=== PATIENT | female | born 2000 | race Caucasian/White ===

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

== ENCOUNTER 2020-12-12 13:49 | Emergency (ER) | payer OTHER, SELFPAY ==
[2020-12-03 07:42] VITALS: BMI 19.2
[2020-12-12 13:50] VITALS: BP 113/68; PULSE 82; RESP 16; TEMP 36.4; O2SAT 97; BMI 21.4
--- NOTE | 2020-12-12 14:05 | CT_ITS ---
STUDY: CT ABDOMEN AND PELVIS WITHOUT CONTRAST REASON FOR EXAM: Female, 20 years old. Abdominal pain. RADIATION DOSAGE (If Supplied By Facility): CTDIvol = ( 7.01 ) mGy, DLP = ( 315.28 ) mGycm TECHNIQUE: Transaxial images were obtained from the dome of the diaphragm to the symphysis pubis with oral contrast, and without intravenous contrast. Sagittal and coronal images were reconstructed. Individualized dose optimization techniques were used for this CT. COMPARISON: None. FINDINGS: The visualized lung bases are unremarkable. The visualized portions of the heart are within normal limits. Normal liver. Normal gallbladder and extrahepatic biliary system. Normal spleen. Normal pancreas. Normal bilateral adrenal glands. There is a 2 mm nonobstructing calculus lower pole calyx of an otherwise normal right kidney. Normal left kidney. Ureters are not visualized. Normal visualized stomach. Normal small intestine. Contrast is seen in the distal small bowel and colon. There is no mass or obstruction. The appendix is visualized and appears normal. Normal abdominal aorta. Normal inferior vena cava. Normal retroperitoneum. Normal urinary bladder. Normal uterus and ovaries. There is no pelvic lymphadenopathy. No free air or free fluid is seen within the peritoneal cavity. Normal abdominal wall. Normal osseous structures. CT/Abdomen/Pel W ORAL Cont Only IMPRESSION: 1. Mild limitation in evaluation due to lack of IV contrast and paucity of internal body fat. 2. Nonobstructing right renal calculus. 3. No evidence of acute intra-abdominal or pelvic process. Electronically Signed: Adilson Smith DO at 16:43 EDT Tel [phone], Service support ,
--- NOTE | 2020-12-12 14:06 | ED.VIS.GI ---
HPI HPI - GI History of Present Illness Chief Complaint: Abd Pain Detail of Chief Complaint: Abdominal pain that started this morning Informant: patient Abdominal Pain/Flank Pain Onset: Today Worsened by: Movement Nausea/Vomiting/Emesis GI Symptom: Positive for Nausea and Vomiting Quality: Positive for Hematemesis Narrative Narrative: Patient presents to the emergency department complaint of abdominal pain that started this morning. The pain came on rather suddenly. She describes it as upper abdomen and note starting to radiate to her back. She has vomited 3 times with it and the third time she had small amount of mucousy blood. She denies any fever. Patient denies any diarrhea. Patient has had normal bowel movements. She states that she has pain in the upper abdomen when she urinates. Patient currently being treated with amoxicillin for ear infection and is on day 9. She also is on Monistat for yeast infection related to the antibiotic. Patient has never had pain like this before. Last menstrual period was a week ago normal. PFSH PFSH Medical History Non-smoker Home Medications amoxicillin 875 mg-potassium clavulanate 125 mg tablet 1 tab PO Q12H 10 Days #20 tab 12/03/20 [Rx Last Taken Unknown] buspirone 5 mg PO BID 12/12/20 [History Last Taken Unknown] hydrocodone-acetaminophen 1 tab PO Q4H PRN PRN 2 Days #10 tablet 12/12/20 [Rx Last Taken Unknown] lansoprazole [Prevacid] 30 mg PO DAILY #30 cap 12/12/20 [Rx Last Taken Unknown] ondansetron 4 mg PO Q8H PRN PRN #10 tab 12/12/20 [Rx Last Taken Unknown] oxcarbazepine 600 mg PO DAILY 12/12/20 [History Last Taken Unknown] vortioxetine [Trintellix] 10 mg PO DAILY 12/12/20 [History Last Taken Unknown] Allergy/AdvReac Type Severity Reaction Status Date / Time No Known Allergies Allergy Verified 12/12/20 13:52 Social History Smoking Status: Never smoker ROS ROS ED Constitutional Constitutional ED: Reports systems reviewed and no addt'l complaints, except as documented; Denies body ache(s), change in weight or chills Eyes Eyes: Denies acute decrease in peripheral vision, change in vision, double vision or loss of vision ENT ENT ED: Reports none; Denies ear pain, lip swelling, loss taste/smell, neck pain, otalgia or sore throat Cardiovascular Cardiovascular: Reports none; Denies abdominal pain, chest pain with activity, leg edema, lightheadedness, palpitations, rapid heart rate or syncope Respiratory/Chest Respiratory/Chest: Reports none; Denies change in mental status, dry cough, dyspnea, hemoptysis, shortness of breath at rest or shortness of breath with exertion Gastrointestinal Gastrointestinal: Reports none, abdominal pain, nausea and vomiting; Denies change in stool character, diarrhea, hematemesis, hematochezia, melena or rectal bleeding Genitourinary Genitourinary ED: Reports none; Denies abdominal discomfort, anuria, dysuria, genital pain or polyuria Musculoskeletal Musculoskeletal: Reports none; Denies arthralgias, back pain, difficulty walking, extremity pain, muscle weakness or myalgias Integumentary Reports none; Denies abscess or rash Neurologic Neurologic: Reports none; Denies abnormal gait, confusion, focal weakness, frequent falls, headache(s), loss of vision, numbness, paresthesias, radicular pain, vertigo or weakness Psychiatric Psychiatric: Reports systems reviewed and no addt'l complaints, except as documented and none; Denies behavioral changes, confusion, difficulty concentrating, hallucinations, suicidal ideation, tactile hallucinations or visual hallucinations Endocrine Endocrinology: Denies none, cold intolerance, excessive sweating, fatigue or heat intolerance Hematologic/Lymphatic Hematologic/Lymphatic: Reports none; Denies anemia, easy bleeding or easy bruising Allergic/Immunologic Allergic/Immunologic ED: Denies as per HPI, none, lip swelling, mouth swelling, throat swelling, tongue swelling or hives EXAM Physical Exam Const Vital Signs: 12/12/20 13:50 12/12/20 16:53 Temperature 97.6 F L Temperature Source Temporal Pulse Rate 82 105 H Respiratory Rate 16 14 Blood Pressure 113/68 Blood Pressure Mean 83 Pulse Ox 97 98 Oxygen Delivery Method Room Air Room Air Positive well nourished and well developed General Appearance ED: well developed and NAD HEENT Reports TM's clear and moist mucous membranes normocephalic and atraumatic; Negative for trauma or tenderness Tympanic Membrane ED: Yes TM's clear Eyes PERRL and EOMs intact bilaterally General Eye ED: Negative for pale conjunctiva or scleral icterus Neck no lymphadenopathy, supple and no JVD General: Negative for tenderness Chest Wall inspection of chest normal and palpation of chest normal Chest: Negative for tenderness Resp normal respiratory effort and clear to auscultation bilaterally Effort and Inspection: Negative for respiratory distress or pain with movement Auscultation: Negative for rhonchi, wheezes or diminished lung sounds Cardio regular rate, regular rhythm, S1 normal heart sound, S2 normal heart sound and no murmurs Peripheral Pulses: pulses 2+ throughout GI normal to inspection, nondistended, normoactive bowel sounds, soft to palpation and no masses Palpation: tender epigastric and LUQ Back/Spine no CVA tenderness and no thoracic nor lumbar tenderness Extremity normal to inspection General Extremety ED: Negative for edema General Extremity: Negative for edema Neuro oriented x3, CN's II-XII intact bilaterally, no sensory deficits noted and gait normal Sensorium / Orientation: awake, alert, oriented to person, oriented to place and oriented to time Motor Exam: strength 5/5 throughout and strength abnormal Psych mental status grossly normal Skin no rashes or lesions noted and no wounds MDM MDM MDM Narrative Medical decision making narrative: Patient not wanting anything for pain in the emergency department. She did receive Zofran and it did help her nausea. Patient will be started on Prevacid. She is advised to follow-up with her primary care physician in 3 to 5 days. She is advised to return if worsening pain, fever, persistent hematemesis, or condition should worsen anyway. Lab Data Attestation: I reviewed the patient's lab results. Labs: Laboratory Results - last 24 hr 12/12/20 12/12/20 12/12/20 14:45 14:45 14:45 WBC 10.0 RBC 4.73 Hgb 14.8 Hct 44.8 MCV 94.7 MCH 31.3 MCHC 33.0 RDW Std Deviation 42.3 RDW Coeff of Geovanna 12.0 Plt Count 211 MPV 9.6 Immature Gran % (Auto) 0.200 Neut % (Auto) 78.2 H Lymph % (Auto) 9.6 L Andrew % (Auto) 10.2 H Eos % (Auto) 1.6 Baso % (Auto) 0.2 Absolute Neuts (auto) 7.8 H Absolute Lymphs (auto) 0.96 Nucleated RBC % 0 Sodium 139 Potassium 3.2 L Chloride 105 Carbon Dioxide 29.0 Anion Gap 5 BUN 14 Creatinine 0.80 Estim Creat Clear Calc 100.94 Est GFR (MDRD) Af Amer 116 Est GFR (MDRD) Non-Af 96 BUN/Creatinine Ratio 17.4 Glucose 94 Calcium 9.0 Total Bilirubin 0.40 AST 20 ALT 25 Alkaline Phosphatase 87 Total Protein 7.2 Albumin 4.0 Globulin 3.2 Albumin/Globulin Ratio 1.2 Lipase 77 Serum , Qual NEGATIVE Urine Color Urine Clarity Urine pH Ur Specific [place] Urine Protein Urine Glucose (UA) Urine Ketones Urine Occult Blood Urine Nitrite Urine Bilirubin Urine Urobilinogen Ur Leukocyte Esterase Urine RBC Urine WBC Ur Squamous Epith Cells Urine Bacteria Urine Mucus 12/12/20 14:56 WBC RBC Hgb Hct MCV MCH MCHC RDW Std Deviation RDW Coeff of Geovanna Plt Count MPV Immature Gran % (Auto) Neut % (Auto) Lymph % (Auto) Andrew % (Auto) Eos % (Auto) Baso % (Auto) Absolute Neuts (auto) Absolute Lymphs (auto) Nucleated RBC % Sodium Potassium Chloride Carbon Dioxide Anion Gap BUN Creatinine Estim Creat Clear Calc Est GFR (MDRD) Af Amer Est GFR (MDRD) Non-Af BUN/Creatinine Ratio Glucose Calcium Total Bilirubin AST ALT Alkaline Phosphatase Total Protein Albumin Globulin Albumin/Globulin Ratio Lipase Serum , Qual Urine Color Yellow Urine Clarity Sl. Cloudy Urine pH 6.5 Ur Specific [place] 1.015 Urine Protein Negative Urine Glucose (UA) Normal Urine Ketones Negative Urine Occult Blood Negative Urine Nitrite Negative Urine Bilirubin Negative Urine Urobilinogen 1 H Ur Leukocyte Esterase 100 H Urine RBC 0 SEEN Urine WBC 0 SEEN Ur Squamous Epith Cells 10-25 SEEN Urine Bacteria 0 SEEN Urine Mucus 0 SEEN Radiography Diagnostic Testing: Radiology Impression Abdomen CT 12/12/20 14:05 IMPRESSION: 1. Mild limitation in evaluation due to lack of IV contrast and paucity of internal body fat. 2. Nonobstructing right renal calculus. 3. No evidence of acute intra-abdominal or pelvic process. Electronically Signed: Adilson Smith DO at 16:43 EDT Tel [phone], Service support , Discharge Plan Triage Chief Complaint: Abd Pain ED Provider: Susan Daly Dx/Rx/DC Orders Clinical Impression: Abdominal pain, Nicki-Bahena tear Instructions: Nicki-Bahena Tear, ED Abdominal Pain Unkn Cause Fem Prescriptions: New ondansetron [ondansetron] 4 MG tablet 4 mg PO Q8H PRN PRN (Reason: Nausea) Qty: 10 RF: 0 lansoprazole [Prevacid] 30 mg capsule,delayed release(DR/EC) 30 mg PO DAILY Qty: 30 RF: 0 hydrocodone-acetaminophen 5-325 mg tablet 1 tab PO Q4H PRN PRN (Reason: Pain) 2 Days Qty: 10 RF: 0 No Action amoxicillin-pot clavulanate [Augmentin] 875-125 mg tablet 1 tab PO Q12H 10 Days Qty: 20 RF: 0 buspirone 5 mg tablet 5 mg PO BID RF: 0 oxcarbazepine 300 mg tablet 600 mg PO DAILY RF: 0 Trintellix 10 mg tablet 10 mg PO DAILY RF: 0 Primary Care Provider: Sophie Beach Referrals: Sophie Beach MD [Primary Care Provider] - 3-5 Days Disposition Disposition: Home, self care
[2020-12-12] MEDS: 0.9% Normal Saline 1,000 ML 125 ML IV (14:49)
[2020-12-12] MEDS: Ondansetron 4 MG/2 ML Vial IV (14:50)
[2020-12-12 14:53] LABS: Absolute Lymphocyte Count 0.96 X10^3/uL (0.83-4.51); Absolute Neutrophil Count 7.8 X10^3/uL (2.0-7.7); Basophil# 0.02 X10^3/uL; Basophil% 0.2 % (0-1); Eosinophil# 0.16 X10^3/uL; Eosinophils% 1.6 % (0-5); Hematocrit 44.8 % (37-47); Hemoglobin 14.8 g/dL (12.0-15.0); Lymphocyte # 0.96 X10^3/ul (0.83-4.51); Lymphocyte % 9.6 % (19-41); Mean Corpuscular Hgb 31.3 pg (27.0-32.0); Mean Corpuscular Volume 94.7 fL (81-99); Mean Platelet Vol. 9.6 fl (6.2-12.0); Monocyte# 1.02 X10^3/uL; Monocyte% 10.2 % (0-10); NRBC Flagged by Analyzer 0 % (0-5); Neutrophil # 7.79 X10^3/uL (2.7-7.7); Neutrophil % 78.2 % (47-70); Platelet Count 211 K/mm3 (150-450); RBC Distribution Width SD 42.3 fl (35.1-43.9); Red Blood Count 4.73 M/mm3 (4.2-5.4)
[2020-12-12 15:00] LABS: Bacteria 0 SEEN /hpf (None Seen); Mucous, Urine 0 SEEN /hpf (<or=2+); Red Blood Cells-Urine 0 SEEN /hpf (0-5); White Blood Cells 0 SEEN /hpf (0-5)
[2020-12-12 15:01] LABS: Color, Urine Yellow (Yellow); Glucose, Dipstick Normal (Normal); Ketone-Dipstick Negative (Negative); Leukocyte Esterase-Dipstick 100 /ul (Negative); Nitrite-Dipstick Negative (Negative); Occult Blood-Urine Negative /ul (Negative); Protein-Dipstick Negative (Negative); Specific Gravity, Urine 1.015 (1.002-1.030); Urine Bilirubin Dipstick Negative (Negative); Urine Clarity Sl. Cloudy (Clear); Urine Urobilinogen 1 mg/dl (Normal); Urine pH 6.5 (5.0 - 8.0)
[2020-12-12 15:05] LABS: ALB/GLOB Ratio 1.2 RATIO (0.9-2.4); AST(SGOT) 20 U/L (15-37); Alanine Aminotransfer ALT/SGPT 25 U/L (13-56); Alkaline Phosphatase 87 U/L (45-117); Anion Gap 5 (5-15); BUN 14 mg/dL (7-18); BUN/Creat Ratio 17.4 RATIO (10-20); Chloride 105 mmol/L (98-107); EST Glomerular Filtration Rate 96 mL/min (>60); Est Glom Filt Rate - Afr Amer 116 mL/min (>60); Estimated Creatinine Clearance 100.94 ml/min; Globulin 3.2 g/dL (2.2-4.2); Glucose 94 mg/dL (74-106); Lipase 77 U/L (73-393); Potassium 3.2 mmol/L (3.5-5.1); Protein, Total 7.2 g/dL (6.4-8.2); Sodium Level 139 mmol/L (136-145)
[2020-12-12 15:08] LABS: Squamous Epithelial Cells - UA 10-25 SEEN /hpf (5-10)
[2020-12-12 15:11] LABS: Internal QC Validated? YES +Cl - CLEAR BKGD; Pregnancy, Serum, hCG Quali. NEGATIVE Negative
[2020-12-12 16:53] VITALS: PULSE 105; RESP 14; O2SAT 98
[2020-12-12] MEDS: Mag Hydrox/Al Hydrox/Simeth 30 ML UDC PO (17:10)
== END 2020-12-12 17:15 | disposition home or self-care (01) ==
PROVIDERS: Emergency Provider Emergency Medicine; PCP Pediatrics
DX: K22.6 Gastro-esophageal laceration-hemorrhage syndrome (principal)
CPT/HCPCS: 74176; 80053; 81001; 83690; 84703; 85025; 96361; 96374; 99284; J7030; A4216; J2405

== ENCOUNTER 2022-05-18 14:34 | Emergency (ER) | payer OTHER, SELFPAY ==
[2022-05-18 14:36] VITALS: BP 99/87; PULSE 100; RESP 14; TEMP 36.2; O2SAT 98; BMI 28.3
[2022-05-18] MEDS: Ketorolac 30 MG/ML Syringe IM (15:23)
--- NOTE | 2022-05-18 15:39 | EDS_ITS ---
HPI History of Present Illness Chief Complaint: Abd Pain Narrative Narrative: Patient presents with 1 hour of abdominal pain in the pelvic region. No nausea or vomiting she was sitting on the toilet having a bowel movement when this happened. She is not constipated. She has no urinary symptoms. She denies . No fevers or chills. PFSH PFS Medical History Non-smoker Home Medications buspirone 5 mg tablet 5 mg PO BID 12/12/20 [History Last Taken Unknown] oxcarbazepine 300 mg tablet 600 mg PO DAILY 12/12/20 [History Last Taken Unknown] vortioxetine 10 mg tablet (Trintellix) 20 mg PO DAILY 12/12/20 [History Last Taken Unknown] naproxen 500 mg tablet (Naprosyn) 500 mg PO BID #20 tabs 05/18/22 [Rx Last Taken Unknown] Allergy/AdvReac Type Severity Reaction Status Date / Time No Known Allergies Allergy Verified 05/18/22 14:36 Social History Smoking Status: Never smoker ROS ROS ED ROS Narrative Past medical history: Reviewed Medications: Reviewed Social history: Noncontributory Review of systems: All systems negative except as indicated General: No fever Eyes: No visual changes ENT: No upper airway congestion, normal voice Neck: No neck pain Cardiovascular: No chest pain Respiratory: No shortness of breath or cough Gastrointestinal: Suprapubic pain as in HPI. Genitourinary: No dysuria or any other urinary symptoms no vaginal bleeding Musculoskeletal: Denies myalgias no difficulty with ambulation Skin: No rash Neurological: No memory loss, confusion or any focal weakness Psych: No recent behavioral changes Hematologic: No easy bleeding or easy bruising EXAM Physical Exam Narrative Exam Narrative: Physical exam General: Well nourished, Well developed, she appears relatively comfortable in the bed. Head: Normocephalic, Atraumatic Eyes: Conjunctiva not pale ENT: Moist mucous membranes Neck: Supple, Nontender, No lymphadenopathy Cardiovascular: Regular rate, Regular rhythm Respiratory: No distress, CTA bilaterally Abdomen: Soft, suprapubic pain and slight there is no guarding or rebound. Back: Nontender, Normal Inspection. Negative for: CVA tenderness Extremities: Nontender, No edema Skin: Normal color, No rash Neurological: Alert, Normal Strength, Normal Sensation Psychological: Normal affect Const Vital Signs: 05/18/22 14:36 Temperature 97.1 F L Temperature Source Temporal Pulse Rate 100 Respiratory Rate 14 Blood Pressure 99/87 H Blood Pressure Mean 91 Pulse Ox 98 Oxygen Delivery Method Room Air [facility] Lab Data Labs: Laboratory Results - last 24 hr 05/18/22 16:04 Urine Color Yellow Urine Clarity Sl. Cloudy Urine pH 7.0 Ur Specific [place] 1.010 Urine Protein Negative Urine Glucose (UA) Normal Urine Ketones Negative Urine Occult Blood Negative Urine Nitrite Negative Urine Bilirubin Negative Urine Urobilinogen Normal Ur Leukocyte Esterase 25 H Urine RBC 0 SEEN Urine WBC 0 SEEN Ur Squamous Epith Cells 0-5 SEEN Urine Bacteria 3+ Urine Mucus 0 SEEN Urine Test Negative Treatment and Re-Evaluation Narrative: Patient's work-up is normal. She had abdominal pain for 1 hour and now it is significantly improved. I do not believe she needs imaging certainly not imaging for appendicitis since it so soon after the onset of pain. I did however tell her that there is a possibility of the pain may migrate to the right lower quadrant, she may have nausea vomiting or fevers and medications to return for repeat evaluation. At this time she has had 1 hour of abdominal pain sharp stabbing which is almost resolved. I think the risks of radiations are too great. I will discharge him in stable condition Discharge Plan Triage Chief Complaint: Abd Pain ED Provider: Adonay Forde Dx/Rx/DC Orders Clinical Impression: Abdominal pain, Pelvic pain Instructions: Abdominal Pain Prescriptions: New naproxen [Naprosyn] 500 mg tablet 500 mg PO BID Qty: 20 0RF No Action buspirone 5 mg tablet 5 mg PO BID oxcarbazepine 300 mg tablet 600 mg PO DAILY Label Comments: TAKE 2 TABLETS BY MOUTH AT BEDTIME Trintellix 10 mg tablet 20 mg PO DAILY Label Comments: TAKE 1 TABLET BY MOUTH ONCE DAILY Primary Care Provider: Care Physician,No Primary Referrals: Radha Birch MD [Med Staff - Active Staff] - 3-5 Days Care Physician,No Primary [Primary Care Provider] - 3-5 Days Disposition Disposition: Home, Self Care
[2022-05-18 16:10] LABS: Mucous, Urine 0 SEEN /hpf (<or=2+); Red Blood Cells-Urine 0 SEEN /hpf (0-5); White Blood Cells 0 SEEN /hpf (0-5)
[2022-05-18 16:14] LABS: Color, Urine Yellow (Yellow); Glucose, Dipstick Normal (Normal); Ketone-Dipstick Negative (Negative); Leukocyte Esterase-Dipstick 25 /ul (Negative); Nitrite-Dipstick Negative (Negative); Occult Blood-Urine Negative /ul (Negative); Protein-Dipstick Negative (Negative); Urine Bilirubin Dipstick Negative (Negative); Urine Clarity Sl. Cloudy (Clear); Urine Urobilinogen Normal (Normal)
[2022-05-18 16:23] LABS: Internal QC Validated? YES +Cl - CLEAR BKGD; Pregnancy, Urine Negative Negative
[2022-05-18 16:33] LABS: Bacteria 3+ /hpf (None Seen); Squamous Epithelial Cells - UA 0-5 SEEN /hpf (5-10)
== END 2022-05-18 17:12 | disposition home or self-care (01) ==
PROVIDERS: Emergency Provider Emergency Medicine; Visit Provider Emergency Medicine
DX: R10.2 Pelvic and perineal pain (principal)
CPT/HCPCS: 81001; 81025; 96372; 99282

== ENCOUNTER 2022-05-29 23:15 | Emergency (ER) | payer OTHER, SELFPAY ==
[2022-05-29 23:15] VITALS: BP 140/55; PULSE 88; RESP 16; TEMP 36.6; O2SAT 98; BMI 26.6
--- NOTE | 2022-05-29 23:24 | EX.ED.DYSGE1 ---
HPI History of Present Illness Chief Complaint: Nausea/Vomiting Narrative Narrative: Presents with nausea for about 7 months, she is on omeprazole which tends to help her symptoms but they continue. She has no fevers chills cough or congestion no back pain or tearing sensation currently she has no abdominal pain. She is denying . PFSH PFS Medical History Non-smoker Home Medications buspirone 5 mg tablet 5 mg PO BID 12/12/20 [History Last Taken Unknown] oxcarbazepine 300 mg tablet 600 mg PO DAILY 12/12/20 [History Last Taken Unknown] vortioxetine 10 mg tablet (Trintellix) 20 mg PO DAILY 12/12/20 [History Last Taken Unknown] naproxen 500 mg tablet (Naprosyn) 500 mg PO BID #20 tabs 05/18/22 [Rx Last Taken Unknown] ondansetron 4 mg disintegrating tablet 4 mg PO Q8H #20 tabs 05/29/22 [Rx Last Taken Unknown] Allergy/AdvReac Type Severity Reaction Status Date / Time No Known Allergies Allergy Verified 05/29/22 23:17 Social History Smoking Status: Never smoker ROS ROS ED ROS Narrative Past medical history: Reviewed Medications: Reviewed Social history: Noncontributory Review of systems: All systems negative except as indicated General: No fever Eyes: No visual changes ENT: No upper airway congestion, normal voice Neck: No neck pain Cardiovascular: No chest pain Respiratory: No shortness of breath or cough Gastrointestinal: No abdominal pain, there is some nausea. No vomiting or diarrhea. Genitourinary: No dysuria Musculoskeletal: Denies myalgias no difficulty with ambulation Skin: No rash Neurological: No memory loss, confusion or any focal weakness Psych: Chronic anxiety no changes EXAM Physical Exam Narrative Exam Narrative: Physical exam General: Well nourished, Well developed, No Acute Distress Head: Normocephalic, Atraumatic ENT: Moist mucous membranes, no signs of dehydration Neck: Supple, Nontender, No lymphadenopathy Cardiovascular: Regular rate, Regular rhythm Respiratory: No distress, CTA bilaterally Abdomen: Soft, Nontender, Nondistended, negative Shaikh's no tenderness anywhere in the abdomen. Back: Nontender, Normal Inspection. Negative for: CVA tenderness Extremities: Nontender, No edema Skin: Normal color, No rash Neurological: Alert, Normal Strength, Normal Sensation Psychological: Quite pleasant. Slightly anxious Const Vital Signs: 05/29/22 23:15 Temperature 97.9 F Temperature Source Temporal Pulse Rate 88 Respiratory Rate 16 Blood Pressure 140/55 H Blood Pressure Mean 83 Pulse Ox 98 Oxygen Delivery Method Room Air MDM MDM MDM Narrative Medical decision making narrative: Patient has chronic nausea, I am unsure about the etiology, I believe this is likely gastritis. She is to continue omeprazole. I will add Zofran. She may need a GI consult, she would benefit from testing at the very least for H. pylori. Discharge Plan Triage Chief Complaint: Nausea/Vomiting ED Provider: Adonay Forde Dx/Rx/DC Orders Clinical Impression: Nausea, Anxiety Instructions: ED Vomiting (Adult) Prescriptions: New ondansetron 4 mg tablet,disintegrating 4 mg PO Q8H Qty: 20 0RF No Action buspirone 5 mg tablet 5 mg PO BID oxcarbazepine 300 mg tablet 600 mg PO DAILY Label Comments: TAKE 2 TABLETS BY MOUTH AT BEDTIME Trintellix 10 mg tablet 20 mg PO DAILY Label Comments: TAKE 1 TABLET BY MOUTH ONCE DAILY naproxen [Naprosyn] 500 mg tablet 500 mg PO BID Qty: 20 0RF Primary Care Provider: Care Physician,No Primary Referrals: Friend,Hitesh, [Med Staff - Active Staff] - 3-5 Days Care Physician,No Primary [Primary Care Provider] - Disposition Disposition: Home, Self Care
[2022-05-29] MEDS: Ondansetron ODT 4 MG Tablet PO (23:29)
== END 2022-05-29 23:40 | disposition home or self-care (01) ==
LOC: ED 23:39
PROVIDERS: Emergency Provider Emergency Medicine; Visit Provider Emergency Medicine
DX: R11.2 Nausea with vomiting, unspecified (principal); F41.9 Anxiety disorder, unspecified; Z79.899 Other long term (current) drug therapy
CPT/HCPCS: 99283

== ENCOUNTER 2022-12-22 22:13 | Emergency (ER) | payer OTHER, SELFPAY ==
[2022-12-22 22:14] VITALS: BP 139/65; PULSE 87; RESP 15; TEMP 36.9; O2SAT 97; BMI 30.1
[2022-12-22 22:38] LABS: Bacteria 0 SEEN /hpf (None Seen); Mucous, Urine 0 SEEN /hpf (<or=2+); Red Blood Cells-Urine 0 SEEN /hpf (0-5); Squamous Epithelial Cells - UA 0 SEEN /hpf (5-10); White Blood Cells 0 SEEN /hpf (0-5)
--- NOTE | 2022-12-22 22:42 | CT_ITS ---
INDICATION: RLQ abd pain EXAMINATION: CT ABDOMEN AND PELVIS WITH CONTRAST - CT Abdomen And Pelvis W/ Contrast Injection TECHNIQUE: Helically acquired images were obtained of the abdomen and pelvis following IV contrast. A radiation dose optimization technique was used for this scan. IV Contrast dosage and agent: 100 mL of Isovue-[id number]. Oral contrast: None. COMPARISON: CT abdomen and pelvis December 12, 2020. FINDINGS: LOWER CHEST: Lung bases are clear. No cardiomegaly or pericardial effusion. Distal esophagus is normal. LIVER: Homogeneous. No focal mass. GALLBLADDER AND BILIARY TREE: No calcified gallstones. Partially collapsed gallbladder limiting assessment. No intra- or extrahepatic biliary ductal dilation. PANCREAS: No focal cystic or solid mass. SPLEEN: Normal size without focal cystic or solid mass. ADRENAL GLANDS: No nodules. KIDNEYS, URETERS and BLADDER: Normal renal size and position. No mass. No hydronephrosis. Bladder is unremarkable. PERITONEUM: Small amount of free fluid along the inferior margin of the cecum. Cecal and shows no inflammatory changes. No other fluid collection. BOWEL: Normal air-filled appendix without wall thickening or other evidence of inflammatory changes. No abnormally distended bowel loops or air fluid levels. No wall thickening or mass. No focal inflammatory changes. LYMPH NODES: No enlarged mesenteric or retroperitoneal lymph nodes. VESSELS: Aorta is non-dilated. Retroaortic left renal vein, variant anatomy. REPRODUCTIVE ORGANS: Uterus has a normal CT appearance. Left ovary is mildly enlarged, 4.3 x 3.1 cm and shows rim enhancing ring type structures likely representing follicles. Right ovary is poorly delineated and appears to be contiguous with some of the pericecal fluid. There is trace free fluid in the dependent right hemipelvis. ABDOMINAL WALL: No discrete abdominal or pelvic wall hernia. BONES: No lytic or blastic abnormality. CT/Abdomen/Pelvis W IV Cont ONLY IMPRESSION: Right adnexal and pericecal fluid around the ill-defined right ovary. No intra-abdominal inflammatory process or other potential origin of this free fluid; right ovary origin is favored. Correlation with ultrasound is recommended. Mildly enlarged left ovary with ring type enhancement within suggesting follicles. Electronically Signed: Olman Romero, DO at 0:06 EDT ,
--- NOTE | 2022-12-22 22:44 | EDS_ITS ---
HPI History of Present Illness Chief Complaint: Complaint Informant: patient and parent Narrative Narrative: Patient is a 22-year-old female with history of chronic nausea and psychiatric disorder presenting with acute right lower quadrant abdominal pain. Patient states she works third shift. She had gotten home and was having intercourse when suddenly she had sharp pain in her suprapubic and right lower quadrant abdominal pain. She states she urinated and there is small amount of vaginal bleeding at that time but no blood in the toilet bowl. She has continued to have significant lower abdominal pain and painful urination. She had no further bleeding. She notes that in April 2022 she had an ovarian cyst that ruptured and this feels similar to that but worse. She took ibuprofen around 11 AM. She notes when she stands up straight her pain is worse and any movement of the abdomen causes worse pain in the right lower quadrant. No report of any fevers. She has some chronic nausea but no vomiting. No change in her bowel movements. She states when she sits on the toilet she does have pain in her back as well. Patient does report that since this started she is felt very bloated. PFSH PFSH Medical History Non-smoker Home Medications buspirone 5 mg tablet 5 mg PO BID 12/12/20 [History Last Taken Unknown] vortioxetine 10 mg tablet (Trintellix) 50 mg PO DAILY 12/12/20 [History Last Taken Unknown] lurasidone 40 mg tablet (Latuda) 40 mg PO DAILY 12/22/22 [History Last Taken Unknown] metformin 500 mg tablet,extended release 24 hr mg PO 12/22/22 [History Last Taken Unknown] trazodone 50 mg tablet 50 mg PO QHS 12/22/22 [History Last Taken Unknown] tramadol 50 mg tablet 50 mg PO BID PRN pain #7 tabs 12/23/22 [Rx Last Taken Unknown] Allergy/AdvReac Type Severity Reaction Status Date / Time No Known Allergies Allergy Verified 12/22/22 22:20 Social History Smoking Status: Never smoker ROS ROS ED Constitutional Constitutional ED: Denies chills or fever(s) Cardiovascular Cardiovascular: Denies chest pain Respiratory/Chest Respiratory/Chest: Denies cough Gastrointestinal Gastrointestinal: Reports abdominal pain and nausea; Denies constipation, diarrhea or vomiting Genitourinary Genitourinary ED: Reports dysuria; Denies hematuria or urinary frequency Musculoskeletal Musculoskeletal: Denies arthralgias or myalgias Integumentary Denies rash Neurologic Neurologic: Denies headache(s) Psychiatric Psychiatric: Denies anxiety Hematologic/Lymphatic Hematologic/Lymphatic: Denies easy bleeding or easy bruising EXAM Physical Exam Const Vital Signs: 12/22/22 22:14 Temperature 98.5 F Temperature Source Temporal Pulse Rate 87 Respiratory Rate 15 Blood Pressure 139/65 H Blood Pressure Mean 89 Pulse Ox 97 Oxygen Delivery Method Room Air Positive well nourished and well developed General Appearance ED: well developed and NAD HEENT Reports moist mucous membranes Neck supple Chest Wall inspection of chest normal and palpation of chest normal Resp normal respiratory effort and clear to auscultation bilaterally Cardio regular rate, regular rhythm and no murmurs GI non-distended Auscultation: hypoactive bowel sounds Palpation: tender RLQ, McBurney's point, suprapubic and Rovsing's sign; Negative for guarding Back/Spine no CVA tenderness Extremity normal to inspection Neuro oriented x3 Sensorium / Orientation: alert Motor Exam: Negative for general weakness Psych mental status grossly normal Skin no rashes or lesions noted and no wounds MDM MDM MDM Narrative Medical decision making narrative: Patient is evaluated sudden onset of right lower quadrant abdominal pain with stress and discomfort in her abdomen throughout the day. Is reminiscent of her prior ruptured ovarian cyst. Because she does have a positive Rovsing sign and tenderness in the right lower quadrant I did obtain a CT of the abdomen pelvis to also rule out appendicitis. CBC, BMP and urinalysis are largely negative. CT the abdomen pelvis shows right adnexal and pericecal fluid around ill-defined right ovary. No obvious intra-abdominal process and favoring her right ovarian origin. She also has a mildly enlarged left ovary. Discussed with patient that more than likely her pain is from a ruptured ovarian cyst. As she is not in significant pain and I have a lower suspicion for ovarian torsion especially given the longevity of the symptoms. Did discuss that for definitive diagnosis we would need transvaginal ultrasound however patient is comfortable with this presumptive diagnosis and outpatient follow-up. She is given Toradol in the ER. She still having some pain will be given a dose of tramadol as well as a short course of tramadol for pain at home. Is given referral for [employer] with Dr. Honorio Shaffer whom her mother and sister also see. Is given return precautions. Is counseled on signs and symptoms of an ovarian torsion. Is given a work note per her request. Patient discharged home in improved and stable condition. Lab Data Attestation: I reviewed the patient's lab results. Labs: Laboratory Results - last 24 hr 12/22/22 12/22/22 12/22/22 22:30 22:55 22:55 WBC 6.0 RBC 4.18 L Hgb 13.3 Hct 39.3 MCV 94.0 MCH 31.8 MCHC 33.8 RDW Std Deviation 41.9 RDW Coeff of [place] 12.1 Plt Count 198 MPV 10.1 Immature Gran % (Auto) 1.300 H Neut % (Auto) 54.1 Lymph % (Auto) 30.3 [place] % (Auto) 11.6 H Eos % (Auto) 2.0 Baso % (Auto) 0.7 Absolute Neuts (auto) 3.2 Absolute Lymphs (auto) 1.81 Nucleated RBC % 0 Sodium 139 Potassium 4.0 Chloride 109 H Carbon Dioxide 26.0 Anion Gap 4 L BUN 15 Creatinine 0.79 Estim Creat Clear Calc 100.51 Est GFR (MDRD) Af Amer 116 Est GFR (MDRD) Non-Af 96 BUN/Creatinine Ratio 18.9 Glucose 96 Calcium 9.1 Total Bilirubin 0.30 AST 14 L ALT 23 Alkaline Phosphatase 76 Total Protein 6.8 Albumin 3.8 Globulin 3.0 Albumin/Globulin Ratio 1.3 Urine Color Yellow Urine Clarity Clear Urine pH 6.0 Ur Specific [place] 1.020 Urine Protein Negative Urine Glucose (UA) Normal Urine Ketones Negative Urine Occult Blood Negative Urine Nitrite Negative Urine Bilirubin Negative Urine Urobilinogen Normal Ur Leukocyte Esterase Negative Urine RBC 0 SEEN Urine WBC 0 SEEN Ur Squamous Epith Cells 0 SEEN Urine Bacteria 0 SEEN Urine Mucus 0 SEEN Urine Test Negative Radiography Diagnostic Testing: Clinical Impression(s) from Imaging Studies Abdomen/Pelvis CT 12/22/22 22:42 IMPRESSION: Right adnexal and pericecal fluid around the ill-defined right ovary. No intra-abdominal inflammatory process or other potential origin of this free fluid; right ovary origin is favored. Correlation with ultrasound is recommended. Mildly enlarged left ovary with ring type enhancement within suggesting follicles. Electronically Signed: Olman Romero DO at 0:06 EDT , Discharge Plan Triage Chief Complaint: Complaint ED Provider: Kenzie Rapp Dx/Rx/DC Orders Clinical Impression: Abdominal pain, right lower quadrant, Rupture of cyst of right ovary Instructions: ED Ovarian Cyst Prescriptions: New tramadol 50 mg tablet 50 mg PO BID PRN (Reason: pain) Qty: 7 0RF No Action buspirone 5 mg tablet 5 mg PO BID Trintellix 10 mg tablet 50 mg PO DAILY Label Comments: TAKE 1 TABLET BY MOUTH ONCE DAILY trazodone 50 mg tablet 50 mg PO QHS Label Comments: Take 1-2 tablet by mouth at bedtime as needed metformin 500 mg tablet extended release 24 hr PO Label Comments: TAKE 1 TABLET BY MOUTH ONCE DAILY WITH A MEAL lurasidone [Latuda] 40 mg tablet 40 mg PO DAILY Stand Alone Forms: ED Work / School Excuse Primary Care Provider: Radha Morataya NP Referrals: Radha Birch MD [Med Staff - Active Staff] - 3-5 Days Radha Morataya NP, [employer]ODUCTION SUPER[employer] [Primary Care Provider] - Disposition Disposition: Home, Self Care
[2022-12-22 22:46] LABS: Color, Urine Yellow (Yellow); Glucose, Dipstick Normal (Normal); Ketone-Dipstick Negative (Negative); Leukocyte Esterase-Dipstick Negative /ul (Negative); Nitrite-Dipstick Negative (Negative); Occult Blood-Urine Negative /ul (Negative); Protein-Dipstick Negative (Negative); Urine Bilirubin Dipstick Negative (Negative); Urine Clarity Clear (Clear); Urine Urobilinogen Normal (Normal)
[2022-12-22] MEDS: Ketorolac 15 MG/ML Vial IV (22:57)
[2022-12-22] MEDS: 0.9% Normal Saline 1,000 ML 125 ML IV (22:58)
[2022-12-22 23:01] LABS: Internal QC Validated? YES +Cl - CLEAR BKGD; Pregnancy, Urine Negative Negative
[2022-12-22 23:17] LABS: Absolute Lymphocyte Count 1.81 X10^3/uL (0.83-4.51); Absolute Neutrophil Count 3.2 X10^3/uL (2.0-7.7); Basophil# 0.04 X10^3/uL; Basophil% 0.7 % (0-1); Eosinophil# 0.12 X10^3/uL; Hematocrit 39.3 % (37-47); Hemoglobin 13.3 g/dL (12.0-15.0); Lymphocyte # 1.81 X10^3/ul (0.83-4.51); Lymphocyte % 30.3 % (19-41); Mean Corp Hgb Conc 33.8 g/dL (32-36); Mean Corpuscular Hgb 31.8 pg (27.0-32.0); Mean Platelet Vol. 10.1 fl (6.2-12.0); Monocyte# 0.69 X10^3/uL; Monocyte% 11.6 % (0-10); NRBC Flagged by Analyzer 0 % (0-5); Neutrophil # 3.23 X10^3/uL (2.7-7.7); Neutrophil % 54.1 % (47-70); Platelet Count 198 K/mm3 (150-450); RBC Distribution Width CV 12.1 % (11.6-14.6); RBC Distribution Width SD 41.9 fl (35.1-43.9); Red Blood Count 4.18 M/mm3 (4.2-5.4)
[2022-12-22 23:25] LABS: ALB/GLOB Ratio 1.3 RATIO (0.9-2.4); AST(SGOT) 14 U/L (15-37); Alanine Aminotransfer ALT/SGPT 23 U/L (13-56); Albumin, Serum 3.8 g/dL (3.2-5.0); Alkaline Phosphatase 76 U/L (45-117); Anion Gap 4 (5-15); BUN 15 mg/dL (7-18); BUN/Creat Ratio 18.9 RATIO (10-20); Calcium,Total 9.1 mg/dL (8.5-10.1); Chloride 109 mmol/L (98-107); Creatinine, Serum 0.79 mg/dL (0.55-1.02); EST Glomerular Filtration Rate 96 mL/min (>60); Est Glom Filt Rate - Afr Amer 116 mL/min (>60); Estimated Creatinine Clearance 100.51 ml/min; Glucose 96 mg/dL (74-106); Protein, Total 6.8 g/dL (6.4-8.2); Sodium Level 139 mmol/L (136-145)
[2022-12-23] MEDS: traMADol 50 MG Tablet PO (02:13)
[2022-12-23 02:16] VITALS: BP 106/74; PULSE 69; RESP 18; O2SAT 100
== END 2022-12-23 02:16 | disposition home or self-care (01) ==
PROVIDERS: Emergency Provider Emergency Medicine; PCP Clinical Nurse Specialist; Visit Provider Emergency Medicine
DX: N83.201 Unspecified ovarian cyst, right side (principal); R10.31 Right lower quadrant pain
CPT/HCPCS: 74177; 80053; 81001; 81025; 85025; 96361; 96374; 99283; J7030; Q9967; A4216

== ENCOUNTER 2023-03-04 20:50 | Emergency (ER) | payer OTHER, SELFPAY ==
[2023-03-04 20:51] VITALS: BP 133/76; PULSE 78; RESP 16; TEMP 36.6; O2SAT 99; BMI 30.4
[2023-03-04 21:56] LABS: Mucous, Urine 0 SEEN /hpf (<or=2+); Red Blood Cells-Urine 0 SEEN /hpf (0-5); Squamous Epithelial Cells - UA 0 SEEN /hpf (5-10); White Blood Cells 0 SEEN /hpf (0-5)
[2023-03-04 22:01] LABS: Color, Urine Yellow (Yellow); Glucose, Dipstick Normal (Normal); Ketone-Dipstick 5 mg/dl (Negative); Leukocyte Esterase-Dipstick Negative /ul (Negative); Nitrite-Dipstick Negative (Negative); Occult Blood-Urine Negative /ul (Negative); Protein-Dipstick Negative (Negative); Specific Gravity, Urine 1.015 (1.002-1.030); Urine Bilirubin Dipstick Negative (Negative); Urine Clarity Sl. Cloudy (Clear); Urine Urobilinogen Normal (Normal)
[2023-03-04 22:01] LABS: Absolute Lymphocyte Count 2.52 X10^3/uL (0.83-4.51); Absolute Neutrophil Count 4.6 X10^3/uL (2.0-7.7); Basophil# 0.04 X10^3/uL; Basophil% 0.5 % (0-1); Eosinophil# 0.07 X10^3/uL; Eosinophils% 0.9 % (0-5); Hematocrit 40.7 % (37-47); Hemoglobin 13.3 g/dL (12.0-15.0); Lymphocyte # 2.52 X10^3/ul (0.83-4.51); Lymphocyte % 31.8 % (19-41); Mean Corp Hgb Conc 32.7 g/dL (32-36); Mean Corpuscular Hgb 30.7 pg (27.0-32.0); Mean Platelet Vol. 9.4 fl (6.2-12.0); Monocyte# 0.63 X10^3/uL; NRBC Flagged by Analyzer 0 % (0-5); Neutrophil # 4.63 X10^3/uL (2.7-7.7); Neutrophil % 58.4 % (47-70); Platelet Count 256 K/mm3 (150-450); RBC Distribution Width CV 12.7 % (11.6-14.6); RBC Distribution Width SD 43.6 fl (35.1-43.9); Red Blood Count 4.33 M/mm3 (4.2-5.4); White Blood Count 7.9 K/mm3 (4.4-11.0)
--- NOTE | 2023-03-04 22:06 | CT_ITS ---
STUDY: CT ABDOMEN AND PELVIS WITHOUT CONTRAST REASON FOR EXAM: Female, 22 years old. abdominal pain RADIATION DOSAGE (If Supplied By Facility): CTDIvol = ( 8.20 ) mGy, DLP = ( 424.09 ) mGycm TECHNIQUE: Transaxial images were obtained from the dome of the diaphragm to the symphysis pubis without oral contrast, and without intravenous contrast. Sagittal and coronal images were reconstructed. Individualized dose optimization techniques were used for this CT. COMPARISON: 12/22/2022 FINDINGS: The visualized lung bases are unremarkable. The visualized portions of the heart are within normal limits. Normal liver. The gallbladder is contracted. Normal spleen. Normal pancreas. Normal bilateral adrenal glands. Normal right kidney. Normal left kidney. Normal visualized stomach. Normal small intestine. Normal colon. The appendix is visualized and appears normal. Normal abdominal aorta. Normal inferior vena cava. Normal retroperitoneum. Normal urinary bladder. Normal abdominal wall. Normal osseous structures. CT/Abdomen/Pelvis without Cont IMPRESSION: Normal unenhanced CT of the abdomen and pelvis. Electronically Signed: Jacques Nair MD at 23:34 EDT ,
--- NOTE | 2023-03-04 22:06 | ED.VIS.GI ---
HPI HPI - GI History of Present Illness Chief Complaint: Abd Pain Detail of Chief Complaint: Abdominal pain Informant: patient Narrative Narrative: Patient presents with abdominal pain and vomiting. Patient states that she has had symptoms for a year. She has been seen in the ER for this and no etiology has been found. Patient's been seen by gastroenterology and was scheduled to have a colonoscopy and an EGD but could not go to a because of work. Patient over the last 2 days had continuous vomiting. She describes continuous abdominal pain. She denies diarrhea currently. She had no fever. She denies urinary symptoms. She is on oral contraceptive and does not think she is . [facility] Medical History (Updated 03/04/23 @ 23:[address] Susan Daly DO) Anxiety Bipolar depression Depression Insomnia Non-smoker PCOS (polycystic ovarian syndrome) Home Medications buspirone 5 mg tablet 5 mg PO BID 12/12/20 [History Last Taken Unknown] vortioxetine 10 mg tablet (Trintellix) 50 mg PO DAILY 12/12/20 [History Last Taken Unknown] lurasidone 40 mg tablet (Latuda) 40 mg PO DAILY 12/22/22 [History Last Taken Unknown] metformin 500 mg tablet,extended release 24 hr 500 mg PO BID 12/22/22 [History Last Taken Unknown] trazodone 50 mg tablet 50 mg PO QHS 12/22/22 [History Last Taken Unknown] dicyclomine 10 mg capsule 20 mg (2 x 10 mg) PO TIDAC #20 CAPSULES 03/04/23 [Rx Last Taken Unknown] ondansetron 4 mg disintegrating tablet 4 mg PO Q8H PRN PRN Nausea #10 tabs 03/04/23 [Rx Last Taken Unknown] Allergy/AdvReac Type Severity Reaction Status Date / Time No Known Allergies Allergy Verified 03/04/23 20:50 Surgical History (Updated 03/04/23 @ 20:53 by Bonnie Banegas) History of tonsillectomy Social History Smoking Status: Never smoker ROS ROS ED Review of Systems ROS Unobtainable: other Constitutional Constitutional ED: Reports lethargy; Denies chills, fever(s), sweats or weight loss Eyes Eyes: Denies blurry vision, change in vision or diplopia ENT ENT ED: Denies rhinorrhea or sore throat Cardiovascular Cardiovascular: Denies chest pain, orthopnea or racing heartbeat Respiratory/Chest Respiratory/Chest: Denies cough, dyspnea, dyspnea on exertion, orthopnea or sputum Gastrointestinal Gastrointestinal: Reports abdominal pain, nausea and vomiting; Denies diarrhea Genitourinary Genitourinary ED: Denies dysuria, hematuria or urinary frequency Musculoskeletal Musculoskeletal: Denies arthralgias, back pain, myalgias or neck pain Integumentary Denies abscess, Abrasions or rash Neurologic Neurologic: Denies headache(s) or weakness Psychiatric Psychiatric: Denies anxiety, depression or suicidal thoughts Endocrine Endocrinology: Denies polydipsia, polyphagia or polyuria Hematologic/Lymphatic Hematologic/Lymphatic: Denies easy bleeding, easy bruising or lymphadenopathy Allergic/Immunologic Allergic/Immunologic ED: Denies mouth swelling, tongue swelling or urticaria EXAM Physical Exam Const Vital Signs: 03/04/23 20:51 03/04/23 22:50 Temperature 97.8 F Temperature Source Temporal Pulse Rate 78 73 Respiratory Rate 16 16 Blood Pressure 133/76 H 121/63 H Blood Pressure Mean 95 82 Pulse Ox 99 100 Oxygen Delivery Method Room Air Positive well nourished and well developed General Appearance ED: well developed and NAD HEENT Reports TM's clear and moist mucous membranes normocephalic and atraumatic; Negative for trauma or tenderness Tympanic Membrane ED: Yes TM's clear Eyes PERRL and EOMs intact bilaterally General Eye ED: Negative for pale conjunctiva or scleral icterus Neck no lymphadenopathy, supple and no JVD General: Negative for tenderness Chest Wall inspection of chest normal and palpation of chest normal Chest: Negative for tenderness Resp normal respiratory effort and clear to auscultation bilaterally Effort and Inspection: Negative for respiratory distress or pain with movement Auscultation: Negative for rhonchi, wheezes or diminished lung sounds Cardio regular rate, regular rhythm, S1 normal heart sound, S2 normal heart sound and no murmurs Peripheral Pulses: pulses 2+ throughout GI normal to inspection, nondistended, normoactive bowel sounds, soft to palpation, non-distended and no masses GI Narrative: Tenderness diffusely to right lower quadrant with with some guarding. There is no rebound, rigidity, or peritoneal signs. No mass palpated. Back/Spine no CVA tenderness and no thoracic nor lumbar tenderness Extremity normal to inspection General Extremety ED: Negative for edema General Extremity: Negative for edema Neuro oriented x3, CN's II-XII intact bilaterally, no sensory deficits noted and gait normal Sensorium / Orientation: awake, alert, oriented to person, oriented to place and oriented to time Motor Exam: strength 5/5 throughout and strength abnormal Psych mental status grossly normal Skin no rashes or lesions noted and no wounds MDM MDM MDM Narrative Medical decision making narrative: Patient with abdominal pain and vomiting. Some symptoms for a year. Sees gastroenterology but missed her appointment to have EGD and colonoscopy. Based on location of pain in the differential would be kidney stone versus ovarian cyst versus appendicitis versus UTI. IV line established. CBC with differential obtained showed a white count 7.9 with hemoglobin of 13 and platelet count 256. Chemistries unremarkable. LFTs were normal. Serum was negative. Urinalysis was normal. CT scan of the abdomen pelvis without contrast showed a normal appendix and no acute disease process. Patient was medicated with Zofran and fluids. This point etiology of her pain unclear. She is advised to follow-up with her commercial intelligence manager. Patient will be given a prescription for Zofran and Bentyl. Advised return if worsening pain, fever, vomiting, or condition should worsen anyway. Lab Data Labs: Laboratory Results - last 24 hr 03/04/23 03/04/23 21:42 21:50 WBC 7.9 RBC 4.33 Hgb 13.3 Hct 40.7 MCV 94.0 MCH 30.7 MCHC 32.7 RDW Std Deviation 43.6 RDW Coeff of Geovanna 12.7 Plt Count 256 MPV 9.4 Immature Gran % (Auto) 0.400 Neut % (Auto) 58.4 Lymph % (Auto) 31.8 [place] % (Auto) 8.0 Eos % (Auto) 0.9 Baso % (Auto) 0.5 Absolute Neuts (auto) 4.6 Absolute Lymphs (auto) 2.52 Nucleated RBC % 0 Sodium 136 Potassium 3.8 Chloride 107 Carbon Dioxide 24.0 Anion Gap 5 BUN 9 Creatinine 0.73 Estim Creat Clear Calc 108.77 Est GFR (MDRD) Af Amer 127 Est GFR (MDRD) Non-Af 105 BUN/Creatinine Ratio 12.3 Glucose 76 Calcium 8.7 Total Bilirubin 0.30 AST 14 L ALT 24 Alkaline Phosphatase 82 Total Protein 7.4 Albumin 3.8 Globulin 3.6 Albumin/Globulin Ratio 1.1 Serum , Qual NEGATIVE Urine Color Yellow Urine Clarity Sl. Cloudy Urine pH 8.0 Ur Specific [place] 1.015 Urine Protein Negative Urine Glucose (UA) Normal Urine Ketones 5 H Urine Occult Blood Negative Urine Nitrite Negative Urine Bilirubin Negative Urine Urobilinogen Normal Ur Leukocyte Esterase Negative Urine RBC 0 SEEN Urine WBC 0 SEEN Ur Squamous Epith Cells 0 SEEN Amorphous Sediment 1+ Urine Bacteria 1+ Urine Mucus 0 SEEN Radiography Diagnostic Testing: Clinical Impression(s) from Imaging Studies Abdomen/Pelvis CT 03/04/23 22:06 IMPRESSION: Normal unenhanced CT of the abdomen and pelvis. Electronically Signed: Jacques Nair MD at 23:34 EDT , Discharge Plan Triage Chief Complaint: Abd Pain ED Provider: Susan Daly Dx/Rx/DC Orders Clinical Impression: Abdominal pain Instructions: ED Abdominal Pain Unkn Cause Fem Prescriptions: New ondansetron [ondansetron] 4 mg tablet,disintegrating 4 mg PO Q8H PRN PRN (Reason: Nausea) Qty: 10 0RF dicyclomine 10 mg capsule 20 mg PO TIDAC Qty: 20 0RF No Action buspirone 5 mg tablet 5 mg PO BID Trintellix 10 mg tablet 50 mg PO DAILY Patient Comments: TAKE 1 TABLET BY MOUTH ONCE DAILY trazodone 50 mg tablet 50 mg PO QHS Patient Comments: Take 1-2 tablet by mouth at bedtime as needed metformin 500 mg tablet extended release 24 hr 500 mg PO BID Patient Comments: TAKE 1 TABLET BY MOUTH ONCE DAILY WITH A MEAL lurasidone [Latuda] 40 mg tablet 40 mg PO DAILY Primary Care Provider: Radha Morataya NP Referrals: Radha Morataya PRODUCTION ILLUSTRATOR, PRODUCTION ILLUSTRATOR-C [Primary Care Provider] - Activity Restrictions/Additional Instructions: Reschedule appointment with your commercial intelligence manager. Disposition Disposition: Home, Self Care
[2023-03-04] MEDS: Ondansetron 4 MG/2 ML Vial IV (22:12)
[2023-03-04 22:14] LABS: Amorphous Sediment 1+; Bacteria 1+ /hpf (None Seen)
[2023-03-04 22:20] LABS: Internal QC Validated? YES +Cl - CLEAR BKGD; Pregnancy, Serum, hCG Quali. NEGATIVE Negative
[2023-03-04 22:24] LABS: ALB/GLOB Ratio 1.1 RATIO (0.9-2.4); AST(SGOT) 14 U/L (15-37); Alanine Aminotransfer ALT/SGPT 24 U/L (13-56); Albumin, Serum 3.8 g/dL (3.2-5.0); Alkaline Phosphatase 82 U/L (45-117); Anion Gap 5 (5-15); BUN 9 mg/dL (7-18); BUN/Creat Ratio 12.3 RATIO (10-20); Calcium,Total 8.7 mg/dL (8.5-10.1); Chloride 107 mmol/L (98-107); Creatinine, Serum 0.73 mg/dL (0.55-1.02); EST Glomerular Filtration Rate 105 mL/min (>60); Est Glom Filt Rate - Afr Amer 127 mL/min (>60); Estimated Creatinine Clearance 108.77 ml/min; Globulin 3.6 g/dL (2.2-4.2); Glucose 76 mg/dL (74-106); Potassium 3.8 mmol/L (3.5-5.1); Protein, Total 7.4 g/dL (6.4-8.2); Sodium Level 136 mmol/L (136-145)
[2023-03-04] MEDS: 0.9% Normal Saline 1,000 ML 150 ML IV (22:34)
[2023-03-04 22:50] VITALS: BP 121/63; PULSE 73; RESP 16; O2SAT 100
== END 2023-03-04 23:43 | disposition home or self-care (01) ==
PROVIDERS: Emergency Provider Emergency Medicine; PCP Clinical Nurse Specialist; Visit Provider Emergency Medicine
DX: R10.9 Unspecified abdominal pain (principal); R11.10 Vomiting, unspecified; Z79.3 Long term (current) use of hormonal contraceptives; F41.9 Anxiety disorder, unspecified; Z79.899 Other long term (current) drug therapy
CPT/HCPCS: 74176; 80053; 81001; 84703; 85025; 96361; 96374; 99282; J7030; A4216; J2405

== ENCOUNTER 2023-03-16 03:07 | Emergency (ER) | payer OTHER, SELFPAY ==
[2023-03-16 03:08] VITALS: BP 134/85; PULSE 69; RESP 16; TEMP 35.7; O2SAT 96; BMI 31.4
--- NOTE | 2023-03-16 03:28 | EDS_ITS ---
HPI History of Present Illness Chief Complaint: Abd Pain Informant: patient Narrative Narrative: Patient is a 22-year-old female with past medical history of bipolar depression as well as PCOS and recurrent abdominal pain. 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 She states that today she was using the bathroom when she developed some left-sided abdominal pain. She states that there is no dysuria but she did notice a small amount of blood present with urination when the pain came on. However she also reports she is at the end of her menstrual cycle. She states she has been informed in the past that she does have ovarian cyst and she is unsure if 1 of these may have ruptured or if there is no other cause for abdominal pain and with this she comes in for evaluation [facility] Medical History (Updated 03/16/23 @ 03:[address] Nolan Musa DO) Anxiety Bipolar depression Depression Insomnia Non-smoker PCOS (polycystic ovarian syndrome) Home Medications buspirone 5 mg tablet 5 mg PO BID 12/12/20 [History Last Taken Unknown] vortioxetine 10 mg tablet (Trintellix) 50 mg PO DAILY 12/12/20 [History Last Taken Unknown] lurasidone 40 mg tablet (Latuda) 40 mg PO DAILY 12/22/22 [History Last Taken Unknown] metformin 500 mg tablet,extended release 24 hr 500 mg PO BID 12/22/22 [History Last Taken Unknown] trazodone 50 mg tablet 50 mg PO QHS 12/22/22 [History Last Taken Unknown] dicyclomine 10 mg capsule 20 mg (2 x 10 mg) PO TIDAC #20 CAPSULES 03/04/23 [Rx Last Taken Unknown] ondansetron 4 mg disintegrating tablet 4 mg PO Q8H PRN PRN Nausea #10 tabs 03/04/23 [Rx Last Taken Unknown] methocarbamol 500 mg tablet 1,000 mg (2 x 500 mg) PO 4X/DAY PRN PRN Muscle pain/spasm #56 tabs 03/16/23 [Rx Last Taken Unknown] Allergy/AdvReac Type Severity Reaction Status Date / Time No Known Allergies Allergy Verified 03/16/23 03:13 Surgical History (Updated 03/04/23 @ 20:53 by Bonnie Banegas) History of tonsillectomy Social History Smoking Status: Never smoker ROS ROS ED Constitutional Constitutional ED: Denies chills or fever(s) ENT ENT ED: Denies sore throat Cardiovascular Cardiovascular: Denies chest pain Respiratory/Chest Respiratory/Chest: Denies cough or dyspnea Gastrointestinal Gastrointestinal: Reports abdominal pain; Denies diarrhea, nausea or vomiting Genitourinary Genitourinary ED: Denies dysuria Musculoskeletal Musculoskeletal: Denies back pain or myalgias Integumentary Denies rash Neurologic Neurologic: Denies headache(s) Hematologic/Lymphatic Hematologic/Lymphatic: Denies easy bleeding or easy bruising EXAM Physical Exam Const Vital Signs: 03/16/23 03:08 03/16/23 03:08 Temperature 96.3 F L 96.3 F L Temperature Source Temporal Temporal Pulse Rate 69 69 Respiratory Rate 16 16 Blood Pressure 134/85 H 134/85 H Blood Pressure Mean 101 101 Pulse Ox 96 96 Oxygen Delivery Method Room Air Room Air Positive well nourished and well developed General Appearance ED: well developed HEENT HEENT Narrative: Normocephalic atraumatic Eyes PERRL and EOMs intact bilaterally Neck supple Resp normal respiratory effort and clear to auscultation bilaterally Cardio regular rate and regular rhythm Rate: other Other Details: Radial and carotid pulses are equal and symmetric No murmurs rubs or gallops noted GI non-distended GI Narrative: Abdomen is soft and nondistended with normal active bowel sounds. There is pain with palpation along the left lower mid and upper abdomen without voluntary guarding or rigidity No pulsatile mass or fluid wave Auscultation: normoactive bowel sounds Palpation: soft Back/Spine no CVA tenderness Back/Spine Narrative: No bony deformity or step-off of the thoracic or lumbar spine no midline pain with palpation No saddle anesthesia. Negative straight leg raise. No clonus or Babinski. Patellar reflexes are plus 2 out of 4 bilaterally Patient does have increased pain with flexion extension and rotation Extremity normal to inspection Neuro oriented x3, CN's II-XII intact bilaterally and no sensory deficits noted Sensorium / Orientation: alert Motor Exam: strength 5/5 throughout Psych Psych Narrative: Patient has a flat affect Skin no rashes or lesions noted Skin Narrative: No overlying soft tissue changes to suggest trauma or infection MDM MDM MDM Narrative Medical decision making narrative: Patient presented to the ER with stable vitals. She reported she was using the restroom when she felt pain in the left side abdomen and then noticed some blood with urination. Differential diagnosis is for UTI versus ruptured hemorrhagic cyst versus kidney stone versus musculoskeletal strain. Chart review was performed and shows that the patient underwent a CT scan just 12 days ago that revealed no acute findings and also had blood work 12 days ago that showed no sign of UTI hematuria acute kidney injury or leukocytosis. Based on the fact that her pain is in the left lower mid and upper abdomen and worsens with motion I do feel this is most likely musculoskeletal in nature. Patient denies any dysuria and she does not have CVA pain which goes against UTI pyelonephritis or kidney stone as a cause of her symptoms. Ovarian cyst is another possibility but as the pain is not localized to the left lower quadrant and does worsen with motion I feel this is lower on the differential. At this time of night I cannot perform an ultrasound and therefore patient will be given an order form to have a ultrasound obtained on an outpatient basis. However as she had blood work and imaging studies done just 12 days ago and her exam and history indicate this is more musculoskeletal in nature should be given Toradol and Norflex and discharge d home History & Record Review Discussion w/independent historian: Patient Discharge Plan Triage Chief Complaint: Abd Pain ED Provider: Nolan Musa Dx/Rx/DC Orders Clinical Impression: Nonspecific abdominal pain, History of bipolar disorder Instructions: Abdominal Pain Prescriptions: New methocarbamol 500 mg tablet 1,000 mg PO 4X/DAY PRN PRN (Reason: Muscle pain/spasm) Qty: 56 0RF No Action buspirone 5 mg tablet 5 mg PO BID Trintellix 10 mg tablet 50 mg PO DAILY Patient Comments: TAKE 1 TABLET BY MOUTH ONCE DAILY trazodone 50 mg tablet 50 mg PO QHS Patient Comments: Take 1-2 tablet by mouth at bedtime as needed metformin 500 mg tablet extended release 24 hr 500 mg PO BID Patient Comments: TAKE 1 TABLET BY MOUTH ONCE DAILY WITH A MEAL lurasidone [Latuda] 40 mg tablet 40 mg PO DAILY ondansetron [ondansetron] 4 mg tablet,disintegrating 4 mg PO Q8H PRN PRN (Reason: Nausea) Qty: 10 0RF dicyclomine 10 mg capsule 20 mg PO TIDAC Qty: 20 0RF Other Ambulatory Orders: Transvaginal Non- (Routine) Facility: [facility] - Location: [facility] Ordered By: Dr. Nolan Musa Primary Care Provider: Radha Morataya NP Referrals: Radha Morataya NP, FLIGHT OPERATIONS ENGINEER-C [Primary Care Provider] - Activity Restrictions/Additional Instructions: Please return to the hospital to obtain your outpatient ultrasound to further assess for an ovarian cyst and cause of your abdominal pain. If you have any further concerns or worsening of symptoms please return to the hospital for repeat evaluation Disposition Disposition: Home, Self Care
[2023-03-16] MEDS: Ketorolac 30 MG/ML Syringe IM (03:40)
[2023-03-16] MEDS: Orphenadrine 60 MG/2 ML Ampul IM (03:40)
[2023-03-16 04:14] VITALS: BP 112/82; PULSE 60; RESP 16; O2SAT 99
== END 2023-03-16 04:15 | disposition home or self-care (01) ==
LOC: ED 03:34
PROVIDERS: Emergency Provider Emergency Medicine; PCP Clinical Nurse Specialist; Visit Provider Emergency Medicine
DX: R10.9 Unspecified abdominal pain (principal); F31.9 Bipolar disorder, unspecified; F41.9 Anxiety disorder, unspecified
CPT/HCPCS: 96372; 99282

== ENCOUNTER 2023-11-20 15:49 | Emergency (ER) | payer OTHER, SELFPAY ==
[2023-11-20 15:51] VITALS: BP 128/76; PULSE 104; RESP 98; TEMP 36.4; O2SAT 97; BMI 28.3
--- NOTE | 2023-11-20 16:18 | EX.ED.VIS.HA ---
HPI History of Present Illness Chief Complaint: Headache Informant: patient Onset/Context/Timing Onset: Days (4) Context: Gradual Timing: Continuous and Waxes and wanes Quality -Headache: Positive for Throbbing Location: Bifrontal and parietal Current Severity: Moderate Maximum Severity: Moderate Worsened by: Light Relieved by: Nothing Associated Symptoms/Injury Associated Symptoms: Positive for Nausea, Vomiting and Photophobia; Negative for Fever, Sore Throat, Sinus Pressure, Numbness, Tingling, Preceding Aura, Visual Changes, Blurred Vision or Visual Loss Narrative Narrative: 23-year-old female has had gradual onset of a bifrontal headache for the last several days associated with nausea and occasional vomiting. She has had some sharp epigastric abdominal pains, makes her nauseated and then she vomits and it goes away. It is not present right now. No neck stiffness or fevers or chills. No recent injuries. States nausea and vomiting been worse in the mornings. She denies likely , states her cycles usually regular and she is likely to start any day now. [facility] Medical History Anxiety Bipolar depression Depression Insomnia Non-smoker PCOS (polycystic ovarian syndrome) Home Medications buspirone 5 mg tablet 5 mg PO BID 12/12/20 [History Last Taken Unknown] vortioxetine 10 mg tablet (Trintellix) 50 mg PO DAILY 12/12/20 [History Last Taken Unknown] lurasidone 40 mg tablet (Latuda) 40 mg PO DAILY 12/22/22 [History Last Taken Unknown] metformin 500 mg tablet,extended release 24 hr 500 mg PO BID 12/22/22 [History Last Taken Unknown] trazodone 50 mg tablet 50 mg PO QHS 12/22/22 [History Last Taken Unknown] dicyclomine 10 mg capsule 20 mg (2 x 10 mg) PO TIDAC #20 CAPSULES 03/04/23 [Rx Last Taken Unknown] ondansetron 4 mg disintegrating tablet 4 mg PO Q8H PRN PRN Nausea #10 tabs 03/04/23 [Rx Last Taken Unknown] methocarbamol 500 mg tablet 1,000 mg (2 x 500 mg) PO 4X/DAY PRN PRN Muscle pain/spasm #56 tabs 03/16/23 [Rx Last Taken Unknown] Allergy/AdvReac Type Severity Reaction Status Date / Time No Known Allergies Allergy Verified 11/20/23 15:51 Surgical History History of tonsillectomy Social History Smoking Status: Never smoker ROS ROS ED Constitutional Constitutional ED: Denies chills or fever(s) Eyes Eyes: Reports photophobia; Denies blurry vision or diplopia ENT ENT ED: Denies ear pain or sore throat Cardiovascular Cardiovascular: Denies chest pain or palpitations Respiratory/Chest Respiratory/Chest: Denies cough or dyspnea Gastrointestinal Gastrointestinal: Reports abdominal pain, nausea and vomiting; Denies diarrhea Genitourinary Genitourinary ED: Denies dysuria or urinary frequency Musculoskeletal Musculoskeletal: Denies back pain or myalgias Integumentary Denies abscess or rash Neurologic Neurologic: Reports headache(s); Denies paresthesias or weakness EXAM Physical Exam Const Vital Signs: 11/20/23 15:51 Temperature 97.6 F L Temperature Source Temporal Pulse Rate 104 H Respiratory Rate 98 H Blood Pressure 128/76 H Blood Pressure Mean 93 Pulse Ox 97 Oxygen Delivery Method Room Air Positive well nourished and well developed Constitutional Narrative: Well-appearing General Appearance ED: well developed and NAD HEENT Reports normocephalic and moist mucous membranes atraumatic Eyes PERRL, EOMs intact bilaterally and conjunctivae normal Eyes Narrative: Mild photophobia Neck no lymphadenopathy, supple and no meningeal signs Resp normal respiratory effort and clear to auscultation bilaterally GI non-tender and non-distended Palpation: soft Extremity normal to inspection and full ROM Neuro oriented x3 and CN's II-XII intact bilaterally Sensorium / Orientation: awake and alert Speech: speech normal Gait (Neuro): normal gait Motor Exam: strength 5/5 throughout Psych mental status grossly normal Skin Lesions: no lesions Rashes: no rashes MDM MDM MDM Narrative Medical decision making narrative: Did a test that confirms it is negative. She was treated with Reglan Toradol she feels much better on reevaluation asking for work note. Headache may be hormonal-related. Follow-up advised if she continues to have them. Lab Data Attestation: I reviewed the patient's lab results. Labs: Laboratory Results - last 24 hr 11/20/23 16:20 Serum , Qual NEGATIVE Discharge Plan Triage Chief Complaint: Headache ED Provider: Bryon Brunner Dx/Rx/DC Orders Clinical Impression: Headache, migraine Instructions: ED, Migraine (Classical) Prescriptions: No Action buspirone 5 mg tablet 5 mg PO BID Trintellix 10 mg tablet 50 mg PO DAILY Patient Comments: TAKE 1 TABLET BY MOUTH ONCE DAILY trazodone 50 mg tablet 50 mg PO QHS Patient Comments: Take 1-2 tablet by mouth at bedtime as needed metformin 500 mg tablet extended release 24 hr 500 mg PO BID Patient Comments: TAKE 1 TABLET BY MOUTH ONCE DAILY WITH A MEAL lurasidone [Latuda] 40 mg tablet 40 mg PO DAILY ondansetron [ondansetron] 4 mg tablet,disintegrating 4 mg PO Q8H PRN PRN (Reason: Nausea) Qty: 10 0RF dicyclomine 10 mg capsule 20 mg PO TIDAC Qty: 20 0RF methocarbamol 500 mg tablet 1,000 mg PO 4X/DAY PRN PRN (Reason: Muscle pain/spasm) Qty: 56 0RF Stand Alone Forms: ED Work / School Excuse Primary Care Provider: Radha Morataya NP Referrals: Radha Morataya NP, CONTROL CLERK REPAIRS-[employer] [Primary Care Provider] - As Needed Disposition Disposition: Home, Self Care
[2023-11-20] MEDS: Ketorolac 30 MG/ML Syringe IV (16:33)
[2023-11-20] MEDS: Metoclopramide 10 MG/2 ML Vial 5 MG IV (16:33)
[2023-11-20] MEDS: 0.9% Normal Saline (1000mL) 1,000 ML 999 ML IV (16:34)
[2023-11-20 17:03] LABS: Internal QC Validated? YES +Cl - CLEAR BKGD; Pregnancy, Serum, hCG Quali. NEGATIVE Negative
[2023-11-20 17:50] VITALS: BP 114/66; PULSE 69; RESP 16; TEMP 36.6; O2SAT 100
== END 2023-11-20 18:40 | disposition home or self-care (01) ==
PROVIDERS: Emergency Provider Emergency Medicine; PCP Clinical Nurse Specialist; Visit Provider Emergency Medicine
DX: G43.909 Migraine, unspecified, not intractable, without status migrainosus (principal); F31.9 Bipolar disorder, unspecified; F41.9 Anxiety disorder, unspecified; Z79.899 Other long term (current) drug therapy
CPT/HCPCS: 84703; 96361; 96374; 96375; 99283

== ENCOUNTER 2024-07-04 09:30 | Emergency (ER) | payer OTHER, SELFPAY ==
[2024-07-04 09:31] VITALS: BP 110/70; PULSE 87; RESP 16; TEMP 36.3; O2SAT 100; BMI 25.2
--- NOTE | 2024-07-04 09:47 | EDS_ITS ---
HPI History of Present Illness Chief Complaint: Nausea/Vomiting PFSH PFS Medical History Anxiety Bipolar depression Depression Insomnia Non-smoker PCOS (polycystic ovarian syndrome) Home Medications ?Medication ?Instructions ?Recorded ?Last Taken ?Type buspirone 5 mg tablet 5 mg PO BID 12/12/20 Unknown History vortioxetine 10 mg tablet 50 mg PO DAILY 12/12/20 Unknown History (Trintellix) lurasidone 40 mg tablet (Latuda) 40 mg PO DAILY 12/22/22 Unknown History metformin 500 mg tablet,extended 500 mg PO BID 12/22/22 Unknown History release 24 hr trazodone 50 mg tablet 50 mg PO QHS 12/22/22 Unknown History dicyclomine 10 mg capsule 20 mg (2 x 10 mg) PO TIDAC #20 03/04/23 Unknown Rx CAPSULES ondansetron 4 mg disintegrating 4 mg PO Q8H PRN PRN Nausea #10 tabs 03/04/23 Unknown Rx tablet methocarbamol 500 mg tablet 1,000 mg (2 x 500 mg) PO 4X/DAY 03/16/23 Unknown Rx PRN PRN Muscle pain/spasm #56 tabs Allergy/AdvReac Type Severity Reaction Status Date / Time No Known Allergies Allergy Verified 07/04/24 09:33 Surgical History History of tonsillectomy Social History Smoking Status: Never smoker EXAM Physical Exam Const Vital Signs: 07/04/24 09:31 07/04/24 11:31 Temperature 97.4 F L Temperature Source Temporal Pulse Rate 87 88 Respiratory Rate 16 14 Blood Pressure 110/70 138/70 H Blood Pressure Mean 83 92 Pulse Ox 100 98 Oxygen Delivery Method Room Air MDM MDM MDM Narrative Medical decision making narrative: HISTORY OF PRESENT ILLNESS: 24-year-old female presents with nausea vomiting overnight. She states she has had 1 week of nausea vomiting diarrhea. Denies any sick contacts. Denies any recent surgery or hospitalization. Denies melena or hematochezia. Notes history of cholecystectomy denies any other abdominal surgeries. Denies vaginal bleeding or discharge. She is not sexually active. Denies frequency urgency or dysuria. REVIEW OF SYSTEMS: Pertinent positives: Nausea vomiting diarrhea Pertinent negatives: Chest pain, shortness of breath, fever PHYSICAL EXAM: Nursing triage notes reviewed, Vital signs reviewed Constitutional: please see mdm HENT: MMM Eyes: Pupils equal round and reactive to light, Extraocular muscles intact Neck: No stridor, no JVD, full neck ROM Lungs: Clear to auscultation, No wheezing or rales. No increased work of breathing, no conversational dyspnea, no accessory muscle use, no nasal flaring. No respiratory distress noted Heart: Regular rate and rhythm, No murmurs, No rubs and No gallops, 2+ distal pulses (radial, femoral, posterior tibial) in all extremities Abdomen: Soft, there is no tenderness, rigidity, rebound or guarding, no obvious peritoneal signs, no palpable pulsatile abdominal masses, no auscultated abdominal bruit : No CVAT Extremities: No edema Neuro: No new focal neurological deficits, cranial nerves II through XII intact, 5/5 strength in all present extremities. Intact sensation to light touch in all present extremities, 2+ reflexes bilateral patella tendons. Skin: No rash or lesions noted MEDICAL DECISION MAKING: Chief Complaint: Nausea and vomiting External records reviewed: Reviewed prior allergies, problem list, vital signs, current medications Factors affecting care: Nicki-Bahena tear, bipolar disorder Social determinants of health: Denies alcohol or illicit drugs such as marijuana use History obtained from others: none Consults: none [facility] Narrative: Patient was initially hemodynamically stable, afebrile and nontoxic-appearing. Exam with benign abdomen. I considered the following differential diagnosis: Electrolyte disturbance, dehydration, , DKA, obstruction, perforation While considered bowel obstruction, abdominal perforation the patient's exam was not consistent with acute surgical etiology such as bowel obstruction or perforation ALL IMAGES (IF OBTAINED) HAVE BEEN PERSONALLY REVIEWED AND INTERPRETED BY MYSELF. CBC with no leukocytosis, no anemia or thrombocytopenia BMP without evidence of significant electrolyte abnormalities, no anion gap, no acute kidney injury. LFTs show no evidence of hepatobiliary pathology. Urine is negative Lipase elevated consistent with likely acute pancreatitis Upon reevaluation the patient's vitals remained stable. Her repeat abdominal exam remained benign. She was able to tolerate p.o. after oral Zofran. She is appropriate for discharge home with instructions to advance her diet slowly first with fasting then to clear liquids as tolerated. She is also encouraged take Zofran as needed as well as Tylenol and ibuprofen for pain control. Strict return precautions were discussed. The patient and/or family, caregivers express understanding. The patient and/or family, caregivers agrees with the plan. Shared decision making: I will have a discussion with the patient and or visitors regarding risk/benefits of further testing or admission. They will be made aware of of the risk/benefits inherent in this decision they will be given the opportunity to voice understanding. Total critical care time today provided was at least 0 minutes. This excludes separately billable procedures. Critical care time (if documented) is secondary to the patient having high probability of clinically significant/life threatening deterioration in the patient's condition which required my urgent intervention. Impression: 1. Acute abdominal pain 2. Nausea vomiting and diarrhea 3. Acute pancreatitis Dispo: Discharge home This note was generated with Endgame dictation software. It may contain incorrect words, spelling, and punctuation that were not noted in review of the chart prior to signing. Lab Data Labs: Laboratory Results - last 24 hr 07/04/24 07/04/24 10:10 11:09 WBC 5.3 RBC 3.99 L Hgb 12.5 Hct 37.7 MCV 94.5 MCH 31.3 MCHC 33.2 RDW Std Deviation 43.1 RDW Coeff of Geovanna 12.4 Plt Count 241 MPV 9.3 Immature Gran % (Auto) 0.200 Neut % (Auto) 56.4 Lymph % (Auto) 28.2 [place] % (Auto) 10.2 H Eos % (Auto) 4.1 Baso % (Auto) 0.9 Absolute Neuts (auto) 3.0 Absolute Lymphs (auto) 1.50 Nucleated RBC % 0 Sodium 139 Potassium 4.2 Chloride 110 H Carbon Dioxide 26.0 Anion Gap 3 L BUN 10 Creatinine 0.78 Estim Creat Clear Calc 108.46 Est GFR (MDRD) Af Amer 117 Est GFR (MDRD) Non-Af 97 BUN/Creatinine Ratio 12.9 Glucose 91 Calcium 8.7 Total Bilirubin 0.20 AST 12 L ALT 23 Alkaline Phosphatase 63 Total Protein 6.3 L Albumin 3.6 Globulin 2.7 Albumin/Globulin Ratio 1.3 Lipase 447 H Urine Test Negative Discharge Plan Triage Chief Complaint: Nausea/Vomiting ED Provider: Leif Martinez Dx/Rx/DC Orders Prescriptions: No Action buspirone 5 mg tablet 5 mg PO BID Trintellix 10 mg tablet 50 mg PO DAILY Patient Comments: TAKE 1 TABLET BY MOUTH ONCE DAILY trazodone 50 mg tablet 50 mg PO QHS Patient Comments: Take 1-2 tablet by mouth at bedtime as needed metformin 500 mg tablet extended release 24 hr 500 mg PO BID Patient Comments: TAKE 1 TABLET BY MOUTH ONCE DAILY WITH A MEAL lurasidone [Latuda] 40 mg tablet 40 mg PO DAILY ondansetron [ondansetron] 4 mg tablet,disintegrating 4 mg PO Q8H PRN PRN (Reason: Nausea) Qty: 10 0RF dicyclomine 10 mg capsule 20 mg PO TIDAC Qty: 20 0RF methocarbamol 500 mg tablet 1,000 mg PO 4X/DAY PRN PRN (Reason: Muscle pain/spasm) Qty: 56 0RF Primary Care Provider: Radha Morataya NP Referrals: Radha Morataya NP, BACK STRIP MACHINE OPERATOR-C [Primary Care Provider] - Print Language: [place]an
[2024-07-04] MEDS: 0.9% Normal Saline (500mL Bag) 500 ML 999 ML IV (10:14)
[2024-07-04] MEDS: Ondansetron 4 MG/2 ML Vial IV (10:14)
[2024-07-04 10:19] LABS: Basophil# 0.05 X10^3/uL; Basophil% 0.9 % (0-1); Eosinophil# 0.22 X10^3/uL; Eosinophils% 4.1 % (0-5); Hematocrit 37.7 % (37-47); Hemoglobin 12.5 g/dL (12.0-15.0); Lymphocyte % 28.2 % (19-41); Mean Corp Hgb Conc 33.2 g/dL (32-36); Mean Corpuscular Hgb 31.3 pg (27.0-32.0); Mean Corpuscular Volume 94.5 fL (81-99); Mean Platelet Vol. 9.3 fl (6.2-12.0); Monocyte# 0.54 X10^3/uL; Monocyte% 10.2 % (0-10); NRBC Flagged by Analyzer 0 % (0-5); Neutrophil # 2.99 X10^3/uL (2.7-7.7); Neutrophil % 56.4 % (47-70); Platelet Count 241 K/mm3 (150-450); RBC Distribution Width CV 12.4 % (11.6-14.6); RBC Distribution Width SD 43.1 fl (35.1-43.9); Red Blood Count 3.99 M/mm3 (4.2-5.4); White Blood Count 5.3 K/mm3 (4.4-11.0)
[2024-07-04 10:57] LABS: ALB/GLOB Ratio 1.3 RATIO (0.9-2.4); AST(SGOT) 12 U/L (15-37); Alanine Aminotransfer ALT/SGPT 23 U/L (13-56); Albumin, Serum 3.6 g/dL (3.2-5.0); Alkaline Phosphatase 63 U/L (45-117); Anion Gap 3 (5-15); BUN 10 mg/dL (7-18); BUN/Creat Ratio 12.9 RATIO (10-20); Calcium,Total 8.7 mg/dL (8.5-10.1); Chloride 110 mmol/L (98-107); Creatinine, Serum 0.78 mg/dL (0.55-1.02); EST Glomerular Filtration Rate 97 mL/min (>60); Est Glom Filt Rate - Afr Amer 117 mL/min (>60); Estimated Creatinine Clearance 108.46 ml/min; Globulin 2.7 g/dL (2.2-4.2); Glucose 91 mg/dL (74-106); Lipase 447 U/L (13-75); Potassium 4.2 mmol/L (3.5-5.1); Protein, Total 6.3 g/dL (6.4-8.2); Sodium Level 139 mmol/L (136-145)
[2024-07-04 11:19] LABS: Internal QC Validated? YES +Cl - CLEAR BKGD; Pregnancy, Urine Negative Negative
[2024-07-04 11:31] VITALS: BP 138/70; PULSE 88; RESP 14; O2SAT 98
== END 2024-07-04 12:25 | disposition home or self-care (01) ==
PROVIDERS: Emergency Provider Emergency Medicine; PCP Clinical Nurse Specialist; Visit Provider Emergency Medicine
DX: K85.90 Acute pancreatitis without necrosis or infection, unspecified (principal); F31.9 Bipolar disorder, unspecified; R11.2 Nausea with vomiting, unspecified; F41.9 Anxiety disorder, unspecified; E28.2 Polycystic ovarian syndrome; G47.00 Insomnia, unspecified; Z79.84 Long term (current) use of oral hypoglycemic drugs; Z79.899 Other long term (current) drug therapy
CPT/HCPCS: 80053; 81025; 83690; 85025; 96361; 96374; 99282; A4216; J2405